=== PATIENT | female | born 1980 | race Caucasian/White ===

== ENCOUNTER 2018-02-16 10:41 | Emergency (ER) | payer MEDICAID, OTHER ==
[~2018-02-16] VITALS: Ht 149.9 cm; Wt 76.0 kg
[2018-02-16 11:32] LABS: BASOPHILS % 0.2 % (0.0-2.0); EOSINOPHILS % 1.5 % (0.0-5.0); HEMATOCRIT. 39.1 % (36.0-48.0); HEMOGLOBIN. 13.1 g/dL (12.0-16.0); LYMPHOCYTES % 26.2 % (20.0-50.0); MEAN CORPUSCULAR VOLUME 86.4 fL (81.0-99.0); MEAN PLATELET VOLUME 7.5 fl (7.4-10.4); MONOCYTES % 6.3 % (2.0-8.0); NEUTROPHILS % 65.8 % (40.0-76.0); PLATELET 342 x1000/uL (130-400); RED BLOOD CELL COUNT 4.52 mill/uL (4.2-5.4); RED CELL DISTRIBUTION WIDTH 14.1 % (11.6-14.6)
[2018-02-16 11:41] LABS: CHLORIDE 105 mEq/L (98-107)
[2018-02-16 11:59] LABS: B-HCG QUANTITATIVE 1459 mIU/mL (<3)
[2018-02-16 12:16] LABS: CLARITY URINE CLEAR (CLEAR); COLOR URINE YELLOW (YELLOW); KETONES URINE NEGATIVE (NEGATIVE); LEUKOCYTE ESTERASE URINE NEGATIVE (NEGATIVE); NITRITE URINE NEGATIVE (NEGATIVE); OCCULT BLOOD URINE 3+ (NEGATIVE); PROTEIN URINE NEGATIVE (NEGATIVE); SPECIFIC GRAVITY URINE 1.016 (1.005-1.030); UROBILINOGEN URINE 0.2 E.U./dL (0.2-1.0)
[2018-02-16 15:14] VITALS: BP 130/81
== END 2018-02-16 15:14 | disposition home or self-care (01) ==
LOC: ER 11:27
DX: O03.88 Urinary tract infection following complete or unspecified spontaneous abortion (principal); Z3A.10 10 weeks gestation of pregnancy
CPT/HCPCS: 36415; 76830; 76856; 80053; 81003; 81025; 84702; 85025; 86850; 86900; 99285

== ENCOUNTER 2018-09-14 02:00 | Emergency (ER) | payer OTHER ==
[~2018-09-14] VITALS: Ht 180.3 cm; Wt 79.0 kg
[2018-09-14 02:52] LABS: BASOPHILS % 0.8 % (0.0-2.0); EOSINOPHILS % 1.3 % (0.0-5.0); HEMATOCRIT. 36.8 % (36.0-48.0); HEMOGLOBIN. 12.7 g/dL (12.0-16.0); LYMPHOCYTES % 25.4 % (20.0-50.0); MEAN PLATELET VOLUME 7.6 fl (7.4-10.4); MONOCYTES % 6.6 % (2.0-8.0); NEUTROPHILS % 65.9 % (40.0-76.0); PLATELET 278 x1000/uL (130-400); RED BLOOD CELL COUNT 4.23 mill/uL (4.2-5.4); RED CELL DISTRIBUTION WIDTH 14.1 % (11.6-14.6)
[2018-09-14 03:04] LABS: CHLORIDE 106 mEq/L (98-107)
[2018-09-14 03:23] LABS: B-HCG QUANTITATIVE 29047 mIU/mL (<3)
[2018-09-14 05:46] VITALS: BP 128/87
== END 2018-09-14 05:47 | disposition home or self-care (01) ==
LOC: ER 02:00
DX: O20.0 Threatened abortion (principal); O09.521 Supervision of elderly multigravida, first trimester; O16.1 Unspecified maternal hypertension, first trimester; Z3A.12 12 weeks gestation of pregnancy
CPT/HCPCS: 36415; 76801; 80053; 81025; 84702; 85025; 86850; 86900; 86901; 99285; Z7610

== ENCOUNTER 2018-12-26 11:09 | Observation (INO) | payer OTHER ==
[~2018-12-26] VITALS: Ht 149.9 cm; Wt 86.2 kg
[2018-12-26] MEDS ORDERED: ACETAMINOPHEN 500MG TABLET PO NR (12:45)
[2018-12-26] MEDS ORDERED: DOCU-138 MT (12:50)
[2018-12-26] MEDS ORDERED: LABE100T5 MT (12:50)
[2018-12-26] MEDS ORDERED: PREN1TAB78 MT (12:50)
[2018-12-26] MEDS ORDERED: LABE200T28 MT (12:50)
== END 2018-12-26 17:00 | disposition home or self-care (01) ==
LOC: 8 EST LDRP 11:09
PROVIDERS: ADMIT Specialist; ATTEND Specialist
DX: O26.893 Other specified pregnancy related conditions, third trimester (principal); R51 Headache; O36.8130 Decreased fetal movements, third trimester, not applicable or unspecified; O10.913 Unspecified pre-existing hypertension complicating pregnancy, third trimester; Z3A.28 28 weeks gestation of pregnancy
CPT/HCPCS: 99281; G0378

== ENCOUNTER 2024-07-14 09:16 | Emergency (ER) | payer OTHER ==
[~2024-07-14] VITALS: Ht 149.9 cm; Wt 91.0 kg
[~2024-07-14 09:16] MED LIST: DOCU-138 MT; LABE100T9 MT; LABE200T9 MT; PREN1TAB78 MT
[2024-07-14 09:25] VITALS: O2SAT 99
[2024-07-14 09:53] LABS: CLARITY URINE CLOUDY (CLEAR); COLOR URINE ORANGE (YELLOW); GLUCOSE URINE NEGATIVE (NEGATIVE); KETONES URINE NEGATIVE (NEGATIVE); LEUKOCYTE ESTERASE URINE 1+ (NEGATIVE); NITRITE URINE NEGATIVE (NEGATIVE); OCCULT BLOOD URINE 3+ (NEGATIVE); PH URINE 5.5 (4.5-8.0); PROTEIN URINE 1+ (NEGATIVE); SPECIFIC GRAVITY URINE 1.019 (1.005-1.030)
[2024-07-14] MEDS: IBUPROFEN 600MG TABLET PO STA (10:02)
[2024-07-14 10:37] LABS: RBC URINE TNTC /hpf (0-2); SQUAMOUS EPITHELIAL CELL URINE FEW /lpf (RARE/1+); URIC ACID CRYSTALS URINE 2+ /lpf
[2024-07-14 10:38] LABS: BACTERIA URINE TRACE
[2024-07-14 10:39] LABS: WBC URINE 0-2 /hpf (0-2)
[2024-07-14] MEDS ORDERED: T3 PO (11:23)
[2024-07-14] MEDS ORDERED: TAMS-11 MT (11:23)
[2024-07-14] MEDS ORDERED: NITR-87 MT (11:23)
[2024-07-14] MEDS ORDERED: IBUP-2029 MT (11:23)
[2024-07-14 11:46] VITALS: BP 132/87; PULSE 86; RESP 18; TEMP 97.7
== END 2024-07-14 11:46 | disposition home or self-care (01) ==
LOC: ER 09:16
DX: N23 Unspecified renal colic (principal); E11.9 Type 2 diabetes mellitus without complications; E78.00 Pure hypercholesterolemia, unspecified; I10 Essential (primary) hypertension; Z98.890 Other specified postprocedural states
CPT/HCPCS: 74176; 81003; 81025; 99284